=== PATIENT | male | born 2000 | race African-American/Black ===

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

== ENCOUNTER 2020-10-01 14:50 | Emergency (ER) | payer MEDICAID, SELFPAY ==
--- NOTE | 2020-10-01 15:39 | RAD ---
EXAM: Chest 2 views: HISTORY: Mid chest pain COMPARISON: None. FINDINGS: There is a normal-sized cardiomediastinal silhouette. There is no evidence of consolidation, mass, or pleural effusion. No acute osseous abnormality. IMPRESSION: No evidence of acute cardiopulmonary disease
== END 2020-10-01 15:50 | disposition home or self-care (01) ==
LOC: NAV ERS 14:50
DX: R07.89 Other chest pain (principal); I10 Essential (primary) hypertension
CPT/HCPCS: 71046; 93005

== ENCOUNTER 2022-03-05 10:26 | Emergency (ER) | payer SELFPAY ==
[2022-03-05 10:48] LABS: Bilirubin Negative (Negative); Blood, Urine Small (Negative); Clarity Clear (Clear); Glucose, Urine (Dipstick) Negative (Negative); Ketone, Urine Negative (Negative); Leukocyte Small (Negative); Nitrite Negative (Negative); Protein, Urine (Dipstick) Negative (Neg-Trace); Specific Gravity, Urine 1.025 (1.005-1.030)
[2022-03-05 10:49] LABS: Bacteria/HPF 1+ HPF (None Seen); RBC/HPF 0-3 HPF (0-3); Squamous Epithelial 0-3 HPF (0-3)
[2022-03-05] MEDS ORDERED: Azithromycin 250 MG TAB ONE (11:27)
[2022-03-05] MEDS ORDERED: cefTRIAXone\\ROCEPHIN 250 MG VIAL ONE ×2 (11:27→11:34)
[2022-03-06 18:39] LABS: Chlam.trachomatis by PCR,Urine Not Detected (NotDetected)
== END 2022-03-05 11:53 | disposition home or self-care (01) ==
LOC: NAV ERS 10:26
DX: N34.2 Other urethritis (principal); I10 Essential (primary) hypertension
CPT/HCPCS: 81003; 81015; 87086; 87491; 87591; 96374; J0696

== ENCOUNTER 2022-06-23 15:26 | Emergency (ER) | payer OTHER, SELFPAY ==
[2022-06-23] MEDS ORDERED: Boostrix 0.5 ML (Tdap) VIAL ONE (15:54)
[2022-06-23] MEDS ORDERED: Rabies Vaccine Human 2.5 UNITS VIAL ONE (15:54)
== END 2022-06-23 17:20 | disposition home or self-care (01) ==
LOC: NAV ERS 15:26
DX: S61.552A Open bite of left wrist, initial encounter (principal); S61.551A Open bite of right wrist, initial encounter; S61.452A Open bite of left hand, initial encounter; S61.451A Open bite of right hand, initial encounter; I10 Essential (primary) hypertension; W54.0XXA Bitten by dog, initial encounter
CPT/HCPCS: 90375; 90471; 90675; 90715; 96372